=== PATIENT | male | born 1990 | race Caucasian/White ===

== ENCOUNTER 2019-04-01 22:29 | Emergency (ER) | payer SELFPAY ==
[2019-04-01] MEDS ORDERED: Doxycycline 100 MG Cap PO ONE (23:01)
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
== END 2019-04-01 23:15 | disposition home or self-care (01) ==
LOC: JD.ED 22:29
DX: S01.531A Puncture wound without foreign body of lip, initial encounter (principal); F17.210 Nicotine dependence, cigarettes, uncomplicated; Y04.0XXA Assault by unarmed brawl or fight, initial encounter
CPT/HCPCS: 99282; A9270; 99283